=== PATIENT | female | born 1965 | race Caucasian/White ===

== ENCOUNTER 2017-01-30 12:22 | Inpatient (IN) | payer BC ==
[~2017-01-30] VITALS: Ht 162.6 cm; Wt 91.5 kg
[2017-01-30 12:29] VITALS: Ht 162.6 cm; Wt 91.5 kg
[2017-01-30] MEDS ORDERED: ONDANSETRON 4 MG INJ IV STA (13:06)
[2017-01-30] MEDS ORDERED: morphine 4 MG/ML VIAL IV STA (13:06)
[2017-01-30] MEDS ORDERED: SOD CHLORIDE 0.9% 1,000 ML IV STA (13:06)
[2017-01-30] MEDS ORDERED: LOSA25TA5 PO (13:37)
[2017-01-30 13:45] LABS: ADD SCAN DIFF NO
[2017-01-30 13:53] LABS: BASOPHILS % 0.3 % (0.0-2.0); EOSINOPHILS # 0.2 10^3/ul (0.0-0.5); EOSINOPHILS % 1.8 % (0.0-7.0); HEMATOCRIT 43.3 % (37.0-47.0); HEMOGLOBIN 14.3 g/dl (12.0-16.0); LYMPHOCYTES # 3.5 10^3/ul (0.8-2.9); LYMPHOCYTES % 26.1 % (15.0-51.0); MEAN CORPUSCULAR HEMOGLOBIN 28.3 pg (29.0-33.0); MEAN CORPUSCULAR VOLUME 85.6 fl (82.0-101.0); MEAN PLATELET VOLUME 10.9 fl (7.4-10.4); MONOCYTE # 0.9 10^3/ul (0.3-0.9); MONOCYTES % 6.8 % (0.0-11.0); NEUTROPHIL # 8.7 10^3/ul (1.6-7.5); NEUTROPHILS % 64.6 % (39.0-77.0); PLATELET COUNT 329 10^3/UL (140-415); RED BLOOD COUNT 5.06 10^6/ul (4.20-5.40); RED CELL DISTRIBUTION WIDTH 13.4 % (11.5-14.5); WHITE BLOOD COUNT 13.5 10^3/ul (4.8-10.8)
[2017-01-30 14:00] LABS: ADD UMIC YES; URINE BILIRUBIN (Dip) NEGATIVE (NEGATIVE); URINE BLOOD (Dip) 1+ (NEGATIVE); URINE COLOR LT. YELLOW (YELLOW); URINE GLUCOSE (Dip) NEGATIVE (NEGATIVE); URINE KETONES (Dip) NEGATIVE (NEGATIVE); URINE LEUKOCYTE ESTERASE (Dip) NEGATIVE (NEGATIVE); URINE NITRITE (Dip) NEGATIVE (NEGATIVE); URINE TOTAL PROTEIN (Dip) TRACE (NEGATIVE); URINE UROBILINOGEN (Dip) 0.2 E.U./dL (0.1-1.0)
[2017-01-30 14:01] LABS: ALBUMIN 4.6 g/dl (3.3-4.9)
[2017-01-30 14:02] LABS: POTASSIUM 4.1 mmol/L (3.5-5.1)
[2017-01-30 14:03] LABS: CREATININE 0.76 mg/dl (0.44-1.00)
[2017-01-30 14:04] LABS: ALBUMIN/GLOBULIN RATIO 1.35; CALCIUM 9.7 mg/dl (8.4-10.2)
[2017-01-30 14:15] LABS: BACTERIA,URINE RARE
[2017-01-30] MEDS ORDERED: IOHEXOL 100 ML ONE (14:17)
[2017-01-30] MEDS ORDERED: SOD CHLORIDE 0.9% 100 ML ONE (14:17)
[2017-01-30 14:20] LABS: TROPONIN-I 0.683 ng/ml (0.00-0.12)
--- NOTE | 2017-01-30 14:24 | RADRPT ---
PROCEDURE: Abdominal Ultrasound (right upper quadrant). CLINICAL INDICATION: Abdominal pain TECHNIQUE: Multiple real-time longitudinal and transverse images of the right upper quadrant of th e abdomen were acquired utilizing a curved array transducer. Images were reviewed on a high-resoluti on PACS workstation. COMPARISON: None FINDINGS: The liver demonstrates increased echogenicity consistent with fatty infiltration. The liver measure s at the upper limits of normal for size. No focal masses are identified. There is no evidence of intra or extrahepatic ductal dilatation. The common bile duct measures 4.0 mm in diameter. No galls tones or gallbladder wall thickening is seen. The visualized portions of the pancreas are unremarkable with obscuration of the tail of the pancrea s. No free fluid is identified. There is no evidence of right hydronephrosis or renal calcification. The right kidney measures 10.9 cm in length. The visualized portions of the aorta and inferior vena cava are within normal limits. IMPRESSION: 1. Fatty infiltration of the liver. 2. Otherwise unremarkable right upper quadrant ultrasound. RPTAT: KK .Hubert Ibarra MD, Date Time Electronically viewed and signed by .Hubret Ibarra MD, MD on 01/30/2017 14:23 .B/
[2017-01-30] MEDS ORDERED: HYDROmorphONE 1 MG/ML SYG IV STA (14:42)
[2017-01-30] MEDS ORDERED: HEPARIN 1000 UNITS/ML 10 ML INJ IV STA (16:13)
[2017-01-30] MEDS ORDERED: HEPARIN 25000 UNITS/250 ML 250 ML IV STA (16:13)
--- NOTE | 2017-01-30 16:24 | RADRPT ---
PROCEDURE: CT pulmonary angiogram. CLINICAL INDICATION: Chest pain. TECHNIQUE: CT scan of the chest and CT pulmonary angiogram was [facility] High-resolution thin slice coronal and sagittal imaging was obtained from the axial source imag es. The patient was examined following the uncomplicated intravenous administration of 100 cc of Om nipaque 350. The images were reviewed on a PACS workstation. Three dimensional reformatting was used as part of interpretation. The total exam CTDI equals 34 and the total exam DLP equals 716.93 mGy- cm. COMPARISON: Abdominal ultrasound 01/30/2017. FINDINGS: CT Pulmonary Angiogram: The pulmonary arteries are well visualized and opacified to the proximal subsegmental level. No artur ling defects are identified throughout the pulmonary arterial tree to suggest pulmonary embolism. T he pulmonary artery is normal for size. No filling defects are identified within the chambers of th e heart. The aorta is adequately opacified to exclude aneurysm, dissection, or intramural hematoma. No signi ficant atherosclerotic calcifications are identified. CT Chest: There are no enlarged mediastinal, axillary, or hilar lymph nodes seen. Size is at the upper limits of normal. There is no pericardial thickening or pericardial effusion. There are minimal dependent changes in the posterior lower lobes. The lungs are otherwise clear. N o pulmonary infiltrate is identified. No pulmonary mass or suspicious pulmonary nodules seen there is no pleural effusion or pneumothorax. There is diffuse decreased attenuation of the hepatic parenchyma consistent with fatty infiltration. There are 2 low density lesions within the left adrenal gland, both with Hounsfield units less coco n 10, and the larger measuring up to 1.8 cm consistent with adrenal adenomas. The partially visuali zed subdiaphragmatic contents are otherwise within normal limits. There are mild degenerate changes of the thoracic spine. The bones of the thorax are otherwise inta ct. IMPRESSION: 1. No CT evidence of pulmonary embolism. 2. No CT evidence of significant aortic pathology. 3. Fatty infiltration of the liver. 4. Left adrenal adenomas. RPTAT: KK .Hubert Ibarra MD, MD Date Time Electronically viewed and signed by .Hubert Ibarra MD, MD on 01/30/2017 16:24 .Reji/
[2017-01-30] MEDS ORDERED: ONDANSETRON 4 MG INJ IV PRN (16:30)
[2017-01-30] MEDS ORDERED: ACETAMINOPHEN 325 MG TAB PO PRN ×2 (16:30→18:00)
--- NOTE | 2017-01-30 17:01 | ERA ---
ER Documentation Chief Complaint Date/Time DATE: 01/30/17 TIME: 16:56 Chief Complaint epigastric pain x 3 days; nausea HPI Patient is a 51-year-old female with obesity, hypertension, and stroke presents with chest pain. The patient has squeezing and substernal chest pain. She also has sweating. She has had these symptoms for 3 days and it has been constant. She has had no treatment as of yet. Upon review of old medical records this is the patient's first visit to the emergency department. ROS All systems reviewed and are negative except as per history of present illness. Medications Home Meds Reported Medications Losartan Potassium* (Losartan Potassium*) 25 Mg Tablet, 25 MG PO DAILY, TAB 01/30/17 Allergies Allergies: Coded Allergies: No Known Allergy (Unverified , 01/30/17) PMhx/Soc History of Surgery: Yes (right side of face tumor ', appy ') Anesthesia Reaction: No Hx Neurological Disorder: Yes (headaches) Hx Respiratory Disorders: No Hx Cardiac Disorders: Yes (htn) Hx Psychiatric Problems: No Hx Miscellaneous Medical Probl: No Hx Alcohol Use: No Hx Substance Use: No Hx Tobacco Use: No Smoking Status: Former smoker FmHx Family History: No coronary disease Physical Exam Vitals Vital Signs Date Time Temp Pulse Resp B/P Pulse Ox O2 Delivery O2 Flow Rate FiO2 01/30/17 15:43 77 14 141/92 95 Room Air 01/30/17 14:51 85 11 147/89 100 Room Air 01/30/17 12:29 99.0 120 20 135/99 98 Physical Exam Const: Moderate distress secondary to pain Head: Atraumatic Eyes: Normal Conjunctiva ENT: Normal External Ears, Nose and Mouth. Neck: Full range of motion..~ No meningismus. Resp: Clear to auscultation bilaterally Cardio: Tachycardic rate without murmur Abd: Soft, non tender, non distended. Normal bowel sounds Skin: No petechiae or rashes Back: No midline or flank tenderness Ext: No cyanosis, or edema Neur: Awake and alert Psych: Normal Mood and Affect Result Diagram: 01/30/17 1333 01/30/17 1333 Results 24 hrs Laboratory Tests Test 01/30/17 13:33 01/30/17 13:49 Alanine Aminotransferase (ALT/SGPT) 43IU/L Albumin 4.6g/dl Albumin/Globulin Ratio 1.35 Alkaline Phosphatase 109IU/L Anion Gap 20 Aspartate Amino Transf (AST/SGOT) 28IU/L Basophils # 0.010^3/ul Basophils % 0.3% Blood Urea Nitrogen 12mg/dl Calcium Level 9.7mg/dl Carbon Dioxide Level 25mmol/L Chloride Level 104mmol/L Creatinine 0.76mg/dl Direct Bilirubin 0.00mg/dl Eosinophils # 0.210^3/ul Eosinophils % 1.8% Globulin 3.40g/dl Glucose Level 99mg/dl Hematocrit 43.3% Hemoglobin 14.3g/dl Indirect Bilirubin 0.0mg/dl Lipase 86U/L Lymphocytes # 3.510^3/ul Lymphocytes % 26.1% Mean Corpuscular Hemoglobin 28.3pg Mean Corpuscular Hemoglobin Concent 33.0g/dl Mean Corpuscular Volume 85.6fl Mean Platelet Volume 10.9fl Monocytes # 0.910^3/ul Monocytes % 6.8% Neutrophils # 8.710^3/ul Neutrophils % 64.6% Nucleated Red Blood Cells # 0.010^3/ul Nucleated Red Blood Cells % 0.0/100WBC Platelet Count 40923^3/UL Potassium Level 4.1mmol/L Red Blood Count 5.0610^6/ul Red Cell Distribution Width 13.4% Sodium Level 145mmol/L Total Bilirubin 0.0mg/dl Total Protein 8.0g/dl Troponin I 0.683ng/ml White Blood Count 13.510^3/ul Urine Bacteria RARE Urine Bilirubin NEGATIVE Urine Clarity CLEAR Urine Color LT. YELLOW Urine Epithelial Cells RARE Urine Glucose NEGATIVE% Urine Hemoglobin 1+ Urine Ketones NEGATIVE Urine Leukocyte Esterase NEGATIVE Urine Microscopic RBC 2-5/HPF Urine Microscopic WBC 0-2/HPF Urine Nitrite NEGATIVE Urine Specific [place] 1.010 Urine Total Protein TRACE Urine Urobilinogen 0.2 E.U./dL Urine pH 7.0 Current Medications Medications (Trade) Dose Ordered Sig/Zoey Route PRN Reason Start Time Stop Time Status Last Admin Dose Admin Sodium Chloride (NS) 1,000 ml @ 1,000 mls/hr Q1H STAT IV 01/30/17 13:06 01/30/17 14:05 DC 01/30/17 13:31 Morphine Sulfate (morphine) 4 mg ONCE STAT IV 01/30/17 13:06 01/30/17 13:07 DC 01/30/17 13:31 Ondansetron HCl (Zofran Inj) 4 mg ONCE STAT IV 01/30/17 13:06 01/30/17 13:07 DC 01/30/17 13:31 IV Flush 10 ml 10 ml STK-MED ONCE .ROUTE 01/30/17 14:17 01/30/17 14:18 DC 01/30/17 14:38 Sodium Chloride 100 ml @ ud STK-MED ONCE .ROUTE 01/30/17 14:17 01/30/17 14:18 DC 01/30/17 14:38 Iohexol (Omnipaque) 100 ml @ ud STK-MED ONCE .ROUTE 01/30/17 14:17 01/30/17 14:18 DC 01/30/17 14:38 Hydromorphone HCl (Dilaudid) 1 mg ONCE STAT IV 01/30/17 14:42 01/30/17 14:43 DC 01/30/17 14:48 Ondansetron HCl (Zofran Inj) 4 mg ER BRIDGE PRN IV NAUSEA AND/OR VOMITING 01/30/17 16:30 01/31/17 16:29 Acetaminophen (Tylenol Tab) 650 mg ER BRIDGE PRN PO MILD PAIN/FEVER 01/30/17 16:30 01/31/17 16:29 Heparin Sodium (Porcine) 5500 unit 5,500 unit ONCE STAT IV 01/30/17 16:13 01/30/17 16:15 DC Heparin Sodium (Porcine) (Heparin 40862 Units/250 ml) 250 ml @ 0 mls/hr ONCE STAT IV 01/30/17 16:13 01/30/17 16:15 DC Procedures/MDM EKG #1 read by me: Rate/Rhythm: Sinus tachycardia at a rate of 110 Intervals: Normal Impression: Sinus tachycardia without evidence of ischemia EKG #2 read by me: Rate/Rhythm: Regular rate and rhythm at a rate of 85 Intervals: Normal Impression: Diffuse minimal ST depressions with minimal ST elevation in aVR consistent with ischemia CT chest shows no dissection or pulmonary embolism per radiology. Patient is a 51-year-old female who presents with chest pain. Her EKGs were concerning for ischemia but at this point I doubt STEMI. The patient's troponin came back positive at 0.683. She was given aspirin and nitroglycerin empirically. I spoke with Dr. Bhagat from the panel team for admission as the patient is unstable for transfer. The patient will be admitted to a telemetry bed. I spoke with Dr. March from cardiology who has recommended IV heparin bolus and heparin drip. CT scan was done and was negative for pulmonary embolism or aortic dissection. I am concerned for ischemic disease at this time. The patient will be admitted to a telemetry bed. She will likely need urgent cardiac catheterization. Critical Care Time: 40 minutes Treatments/Evaluations: Close monitoring and treatment of unstable vital signs, cardiorespiratory, and neurologic status, while maintaining tight balance of fluid, respiratory, and cardiac interventions. This time includes discussing the case with the patient and the patient's family. This time does not include all procedures stated elsewhere in this record. This time also includes reviewing old records, labs and radiological studies. This time includes examining and re-examining the patient. Additionally, this time also includes arranging care with admitting and consulting physicians. Departure Diagnosis: Primary Impression: NSTEMI (non-ST elevated myocardial infarction) Additional Impression: Chest pain Qualified Code: I20.9 - Ischemic chest pain Condition: Serious PRACHI SPIVEY MD Jan 30, 2017 17:01
[2017-01-30] MEDS ORDERED: ATORVASTATIN 80 MG TAB PO ONE (17:30)
[2017-01-30] MEDS ORDERED: ASPIRIN 81 MG TAB PO ONE (17:30)
--- NOTE | 2017-01-30 17:35 | CONS ---
Date/Time of Note Date/Time of Note DATE: 01/30/17 TIME: 17:27 Assessment/Plan Assessment/Plan Chief Complaint/Hosp Course NSTEMI: Trop 0.6 and EKG with mild ST changes concerning for global ischemia ( LM or 3V disease usually). In a woman her age the differential is broad and includes most likely atherosclerotic CAD but also vasospasm, coronary dissection , pericarditis. CTA is negative for PE and aortic dissection. She will need a cardiac cath for evaluation of her coronaries. She is agreeable. HTN Prior tobacco use Obesity -ASA 325mg now and 81mg daily starting tomorrow -heparin drip -lipitor -metoprolol 25mg BID -echo -cath tomorrow afternoon -NPO after midnight Problems: Consultation Date/Type/Reason Admit Date/Time Date of Consultation: Jan 30, 2017 Type of Consultation: Cardiology Reason for Consultation Chest carrie/NSTEMI Referring Provider: PRACHI SPIVEY MD Hx of Present Illness 51 yo F with a h/o HTN, tobacco use (20 yrs, 4 cigs daily, quit 5 months ago), obesity, who presented with chest pain. The pt notes that she has started to have chest pain 2 days ago which she describes as pressure like substernal and radiating to her left arm. The pain has been constant but gets worse is she tries to exert herself. She is not sure if it is worse with inspiration. She did have a cold 2 weeks ago. She denies SOB, orthopnea, edema. She has never had chest pain or cardiac issues. No family h/o CAD. She denies bleeding issues. She is currently chest pain free. per HPI Past Medical History HTN, tobacco use Social History Smoking Status: Former smoker Exam/Review of Systems Vital Signs Vitals Vital Signs Date Time Temp Pulse Resp B/P Pulse Ox O2 Delivery O2 Flow Rate FiO2 01/30/17 15:43 77 14 141/92 95 Room Air 01/30/17 12:29 99.0 Exam Constitutional: alert, oriented Psych: no complaints Head: atraumatic, normocephalic Neck: No jvd Respiratory: clear to auscultation, No crackles/rales Cardiovascular: regular rate and rhythm, No edema, No systolic murmur Gastrointestinal: non-tender, other (obese), soft Musculoskeletal: nl extremities to inspection Neurological: nl mental status, nl speech Skin: No rash or lesions Results EKG: sinus, mild diffuse ST depression with 1 mm ERICK in aVR concerning for global ischemia Result Diagram: 01/30/17 1333 01/30/17 1333 Results 24 hrs Laboratory Tests Test 01/30/17 13:33 01/30/17 13:49 Alanine Aminotransferase (ALT/SGPT) 43 Albumin 4.6 Albumin/Globulin Ratio 1.35 Alkaline Phosphatase 109 Anion Gap 20 H Aspartate Amino Transf (AST/SGOT) 28 Basophils # 0.0 Basophils % 0.3 Blood Urea Nitrogen 12 Calcium Level 9.7 Carbon Dioxide Level 25 Chloride Level 104 Creatinine 0.76 Direct Bilirubin 0.00 Eosinophils # 0.2 Eosinophils % 1.8 Globulin 3.40 H Glucose Level 99 Hematocrit 43.3 Hemoglobin 14.3 Indirect Bilirubin 0.0 Lipase 86 Lymphocytes # 3.5 H Lymphocytes % 26.1 Mean Corpuscular Hemoglobin 28.3 L Mean Corpuscular Hemoglobin Concent 33.0 Mean Corpuscular Volume 85.6 Mean Platelet Volume 10.9 H Monocytes # 0.9 Monocytes % 6.8 Neutrophils # 8.7 H Neutrophils % 64.6 Nucleated Red Blood Cells # 0.0 Nucleated Red Blood Cells % 0.0 Platelet Count 329 Potassium Level 4.1 Red Blood Count 5.06 Red Cell Distribution Width 13.4 Sodium Level 145 H Total Bilirubin 0.0 L Total Protein 8.0 Troponin I 0.683 *H White Blood Count 13.5 H Urine Bacteria RARE Urine Bilirubin NEGATIVE Urine Clarity CLEAR Urine Color LT. YELLOW Urine Epithelial Cells RARE Urine Glucose NEGATIVE Urine Hemoglobin 1+ H Urine Ketones NEGATIVE Urine Leukocyte Esterase NEGATIVE Urine Microscopic RBC 2-5 Urine Microscopic WBC 0-2 Urine Nitrite NEGATIVE Urine Specific [place] 1.010 Urine Total Protein TRACE Urine Urobilinogen 0.2 E.U./dL Urine pH 7.0 PATRICIA NEVILLE Jan 30, 2017 17:34
[2017-01-30 17:44] VITALS: BP 138/75; RESP 18
[2017-01-30 17:49] VITALS: PULSE 91
[2017-01-30] MEDS ORDERED: DOCUSATE SODIUM 100 MG CAP PO PRN (18:00)
[2017-01-30] MEDS ORDERED: HEPARIN 1000 UNITS/ML 10 ML INJ IV ONE (18:00)
[2017-01-30] MEDS ORDERED: LORAZEPAM 0.5 MG TAB PO PRN (18:00)
[2017-01-30] MEDS ORDERED: ONDANSETRON 4 MG TAB PO PRN (18:00)
[2017-01-30] MEDS ORDERED: morphine 2 MG INJ IV PRN (18:00)
[2017-01-30] MEDS ORDERED: NITROGLYCERIN (SL) 0.4 MG TAB SL PRN (18:00)
[2017-01-30] MEDS ORDERED: HEPARIN 1000 UNITS/ML 10 ML INJ IV PRN (18:00)
[2017-01-30] MEDS ORDERED: NACL 0.9% 3 ML SYG IV SCH (18:00)
[2017-01-30] MEDS: METOPROLOL 25 MG TAB PO SCH ×2 (18:17→23:00)
[2017-01-30 18:34] LABS: ADD SCAN DIFF NO
[2017-01-30 18:36] LABS: BASOPHIL # 0.1 10^3/ul (0.0-0.1); BASOPHILS % 0.4 % (0.0-2.0); EOSINOPHILS # 0.2 10^3/ul (0.0-0.5); EOSINOPHILS % 1.6 % (0.0-7.0); HEMOGLOBIN 13.7 g/dl (12.0-16.0); LYMPHOCYTES # 3.4 10^3/ul (0.8-2.9); MEAN CORPUSCULAR HEMOGLOBIN 28.4 pg (29.0-33.0); MEAN CORPUSCULAR HGB CONC 32.6 g/dl (32.0-37.0); MEAN PLATELET VOLUME 11.2 fl (7.4-10.4); MONOCYTE # 0.6 10^3/ul (0.3-0.9); MONOCYTES % 4.9 % (0.0-11.0); NEUTROPHILS % 62.8 % (39.0-77.0); NUCLEATED RED BLOOD CELLS% 0.2 /100WBC (0.0-0.0); PLATELET COUNT 279 10^3/UL (140-415); RED BLOOD COUNT 4.83 10^6/ul (4.20-5.40); RED CELL DISTRIBUTION WIDTH 13.2 % (11.5-14.5); WHITE BLOOD COUNT 11.2 10^3/ul (4.8-10.8)
[2017-01-30 18:46] LABS: INR 1.01; PROTIME 13.3 Sec (12.2-14.2)
[2017-01-30 18:54] LABS: PARTIAL THROMBOPLASTIN TIME 99.6 Sec (25.0-35.0)
--- NOTE | 2017-01-30 19:02 | HP ---
DATE OF ADMISSION: 01/30/2017 CASUALTY INSURANCE CLAIM ADJUSTER: Cardiology. CHIEF COMPLAINT: Chest pain. HISTORY OF PRESENT ILLNESS: This is a pleasant 51-year-old female with past medical history of hype rtension and obesity, who presents to [facility] [place] secondary to having chest discom fort which has been ongoing for the past 3 days. The chest is substernal, radiating to her left daniele ulder and not her jaw. The patient also has been complaining of having mild headache without any di zziness, although patient does complain of having some nausea this morning without any vomiting. Th e chest is not accompanied with any shortness of breath. There is no recent travel history. No sic k contact or any other discomfort. Patient denies any fever, chills, weight gain, weight loss, anor exia. Positive for chest pain, shortness of breath. No abdominal pain. No dysuria, hematuria, urg ency, incontinence. No change in the color of stool. No recent travel history. No sick contact or any discomfort. PAST MEDICAL HISTORY: 1. Hypertension. 2. Obesity. PAST SURGICAL HISTORY: 1. Appendectomy. 2. Parotid gland surgery on the right. MEDICATIONS: Losartan. SOCIAL HISTORY: She smokes 1 cigarette per day, although her smokes about half a pack of ci garettes per day. No alcohol, no illicit drugs. She lives at home with her and her kids. REVIEW OF SYSTEMS: As above per HPI, otherwise 12 review of systems was found to be negative. PHYSICAL EXAMINATION: VITAL SIGNS: Temperature 98.4, pulse 77, respiration 18, blood pressure 138/75, oxygen 97% room air . GENERAL APPEARANCE: The patient is lying in bed comfortably without any distress. She is awake, al ert, oriented. She is able to answer my questions properly. EYES AND ENT: Conjunctivae and lids are normal. Pupils are normal. Extraocular normal. Hearing g rossly normal. Lips are normal. Oral mucosa is moist. There is evidence of scar in her left side of the face from her surgical intervention. NECK: Supple. Trachea is midline. No lymphadenopathy. RESPIRATORY: Effort is normal. Clear to auscultate bilaterally. CARDIOVASCULAR: Normal S1, S2. Regular rhythm and rate. No murmur, no bruits, no edema. Peripher al pulses, radial pulses palpable. Cap refill is normal. CHEST: Normal expansion of thorax during inspiration. GASTROINTESTINAL: Abdomen is soft, nontender, not distended. Bowel sounds present. No guarding, n o rebound. GENITOURINARY: Deferred. MUSCULOSKELETAL: Upper and lower extremities within normal limits. Full range of motion, strength 5/5 in both upper and lower extremities. NEUROLOGIC: Cranial nerves II through XII are grossly intact. PSYCHIATRIC: Normal judgment and insight. Alert and oriented x3. Mood and affect is normal. LABORATORY WORK AND IMAGING: Sodium 145, potassium 4.1, chloride 104, bicarbonate 25, BUN 12, crea tinine 0.76, glucose 99, calcium 9.7. Troponin ____. WBC 13.5, hemoglobin 14.3, hematocrit 43.3, platelets 329. Urinalysis negative except urine hemoglobin positive 1, trace protein. EKG showed r egular rhythm and rate with ventricular rate of 85, normal intervals with diffuse minimal ST depress ion with minimal ST elevation in AVR , consistent with ischemia. ASSESSMENT AND PLAN: 1. Non-ST myocardial infarction with troponin of 0.68. Cardiology has been consulted. Patient has been placed on heparin drip, aspirin. Follow up cardiology recommendation of possible left heart c atheterization. Will follow up lipid panel. 2. Essential hypertension, well controlled on medical management. 3. Obesity. Diet and exercise has been recommended. 3. Nicotine dependency. Education was provided. Smoking cessation has been advised. 4. Deep venous thrombosis prophylaxis, on heparin. 5. Gastrointestinal prophylaxis, on proton pump inhibitor. 6. We will continue to monitor patient closely. Further recommendations, management and treatment as per clinical course. Total amount of time was spent for evaluation of patient, admission workup 40 minutes. Dictated By: VIET MAHONEY/NTS Conf#: [id number] DID#: [id number]
[2017-01-30 20:14] LABS: TROPONIN-I 1.71 ng/ml (0.00-0.12)
[2017-01-30 20:18] VITALS: BP 107/59; RESP 20
[2017-01-30 20:34] VITALS: PULSE 62
[2017-01-30 23:39] LABS: CK-MB 20.1 ng/ml (0.0-2.4)
[2017-01-30 23:45] LABS: TROPONIN-I 2.65 ng/ml (0.00-0.12)
[2017-01-30] MEDS: HEPARIN 25000 UNITS/250 ML 250 ML IV SCH (23:52)
[2017-01-31] VITALS (37 sets, daily range): BP systolic 110–163; BP diastolic 53–90; PULSE 58–83; RESP 15–41
[2017-01-31] MEDS: PANTOPRAZOLE (EC) 40 MG TAB PO SCH (05:06)
[2017-01-31 06:15] LABS: ADD SCAN DIFF NO
[2017-01-31 06:24] LABS: ABNORMAL IP MESSAGE 1; BASOPHIL # 0.1 10^3/ul (0.0-0.1); BASOPHILS % 0.4 % (0.0-2.0); EOSINOPHILS # 0.4 10^3/ul (0.0-0.5); HEMATOCRIT 40.5 % (37.0-47.0); HEMOGLOBIN 12.9 g/dl (12.0-16.0); LYMPHOCYTES # 5.1 10^3/ul (0.8-2.9); LYMPHOCYTES % 39.3 % (15.0-51.0); MEAN CORPUSCULAR HEMOGLOBIN 28.2 pg (29.0-33.0); MEAN CORPUSCULAR HGB CONC 31.9 g/dl (32.0-37.0); MEAN CORPUSCULAR VOLUME 88.4 fl (82.0-101.0); MEAN PLATELET VOLUME 11.1 fl (7.4-10.4); MONOCYTE # 0.9 10^3/ul (0.3-0.9); MONOCYTES % 6.8 % (0.0-11.0); NEUTROPHIL # 6.5 10^3/ul (1.6-7.5); NEUTROPHILS % 50.2 % (39.0-77.0); PLATELET COUNT 254 10^3/UL (140-415); RED BLOOD COUNT 4.58 10^6/ul (4.20-5.40); RED CELL DISTRIBUTION WIDTH 13.7 % (11.5-14.5); WHITE BLOOD COUNT 12.9 10^3/ul (4.8-10.8)
[2017-01-31 06:40] LABS: CREATININE 0.66 mg/dl (0.44-1.00)
[2017-01-31 06:41] LABS: CALCIUM 8.9 mg/dl (8.4-10.2); CHOL/HDL RATIO 3.4 RATIO; MAGNESIUM 2.1 mg/dl (1.7-2.5)
[2017-01-31 07:09] LABS: CK-MB 16.6 ng/ml (0.0-2.4)
[2017-01-31 07:11] LABS: THYROID STIMULATING HORMONE 0.905 MIU/L (0.465-4.680)
[2017-01-31 07:14] LABS: TROPONIN-I 2.5 ng/ml (0.00-0.12)
[2017-01-31] MEDS: ASPIRIN 81 MG TAB PO SCH (08:20)
[2017-01-31] MEDS: LOSARTAN 25 MG TAB PO SCH (08:20)
[2017-01-31] MEDS: METOPROLOL 25 MG TAB PO SCH ×2 (08:20→20:45)
[2017-01-31] MEDS: HEPARIN 25000 UNITS/250 ML 250 ML IV SCH (08:32)
--- NOTE | 2017-01-31 09:13 | CONS ---
Date/Time of Note Date/Time of Note DATE: 01/31/17 TIME: 09:10 Assessment/Plan Assessment/Plan Chief Complaint/Hosp Course NSTEMI: Trop peaked at 2.6 and EKG with mild ST changes concerning for global ischemia (LM or 3V disease usually). In a woman her age the differential is broad and includes most likely atherosclerotic CAD but also vasospasm, coronary dissection, pericarditis. CTA is negative for PE and aortic dissection. She will need a cardiac cath for evaluation of her coronaries. She is agreeable. HTN Prior tobacco use Obesity -ASA, lipitor -heparin drip -metoprolol 25mg BID -echo -cath today in the afternoon unless stat EKG requires otherwise -NPO Problems: Consultation Date/Type/Reason Admit Date/Time Jan 30, 2017 at 16:08 Initial Consult Date 01/30/17 Type of Consultation: Cardiology Referring Provider: PRACHI SPIVEY MD 24 HR Interval Summary Free Text/Dictation No o/n events. Trop peaked at 2.6. No chest pain last night. This am 2/10 in her arm but not chest. Exam/Review of Systems Vital Signs Vitals Vital Signs Date Time Temp Pulse Resp B/P Pulse Ox O2 Delivery O2 Flow Rate FiO2 01/31/17 08:09 67 01/31/17 07:13 97.8 19 123/65 95 01/30/17 15:43 Room Air Intake and Output 01/30/17 01/30/17 01/31/17 14:59 22:59 06:59 Intake Total 120 ml Balance 120 ml Exam Constitutional: alert, oriented Psych: nl mood/affect Head: atraumatic, normocephalic Neck: No jvd Respiratory: clear to auscultation, No crackles/rales Cardiovascular: regular rate and rhythm, No edema Gastrointestinal: non-tender, soft Neurological: nl speech Results Result Diagram: 01/31/17 0532 01/31/17 0532 Results 24 hrs Laboratory Tests Test 01/30/17 13:33 01/30/17 13:49 01/30/17 18:20 01/30/17 23:09 Alanine Aminotransferase (ALT/SGPT) 43 Albumin 4.6 Albumin/Globulin Ratio 1.35 Alkaline Phosphatase 109 Anion Gap 20 H Aspartate Amino Transf (AST/SGOT) 28 Basophils # 0.0 0.1 Basophils % 0.3 0.4 Blood Urea Nitrogen 12 Calcium Level 9.7 Carbon Dioxide Level 25 Chloride Level 104 Creatinine 0.76 Direct Bilirubin 0.00 Eosinophils # 0.2 0.2 Eosinophils % 1.8 1.6 Globulin 3.40 H Glucose Level 99 Hematocrit 43.3 42.0 Hemoglobin 14.3 13.7 Indirect Bilirubin 0.0 Lipase 86 Lymphocytes # 3.5 H 3.4 H Lymphocytes % 26.1 30.0 Mean Corpuscular Hemoglobin 28.3 L 28.4 L Mean Corpuscular Hemoglobin Concent 33.0 32.6 Mean Corpuscular Volume 85.6 87.0 Mean Platelet Volume 10.9 H 11.2 H Monocytes # 0.9 0.6 Monocytes % 6.8 4.9 Neutrophils # 8.7 H 7.0 Neutrophils % 64.6 62.8 Nucleated Red Blood Cells # 0.0 0.0 Nucleated Red Blood Cells % 0.0 0.2 H Platelet Count 329 279 Potassium Level 4.1 Red Blood Count 5.06 4.83 Red Cell Distribution Width 13.4 13.2 Sodium Level 145 H Total Bilirubin 0.0 L Total Protein 8.0 Troponin I 0.683 *H 1.710 *H 2.650 *H White Blood Count 13.5 H 11.2 H Urine Bacteria RARE Urine Bilirubin NEGATIVE Urine Clarity CLEAR Urine Color LT. YELLOW Urine Epithelial Cells RARE Urine Glucose NEGATIVE Urine Hemoglobin 1+ H Urine Ketones NEGATIVE Urine Leukocyte Esterase NEGATIVE Urine Microscopic RBC 2-5 Urine Microscopic WBC 0-2 Urine Nitrite NEGATIVE Urine Specific [place] 1.010 Urine Total Protein TRACE Urine Urobilinogen 0.2 E.U./dL Urine pH 7.0 Activated Partial Thromboplast Time 99.6 *H 59.2 H Creatine Kinase 189 206 H Creatine Kinase Index 10.1 9.8 Creatinine Kinase MB (Mass) 19.00 H 20.10 H INR International Normalized Ratio 1.01 Prothrombin Time 13.3 Prothrombin Time Ratio 1.0 Test 01/31/17 05:32 Activated Partial Thromboplast Time 41.6 H Anion Gap 16 Basophils # 0.1 Basophils % 0.4 Blood Urea Nitrogen 11 Calcium Level 8.9 Carbon Dioxide Level 26 Chloride Level 106 Cholesterol Level 171 Cholesterol/HDL Ratio 3.4 Creatine Kinase 196 Creatine Kinase Index 8.5 Creatinine 0.66 Creatinine Kinase MB (Mass) 16.60 H Eosinophils # 0.4 Eosinophils % 3.0 Glucose Level 100 HDL Cholesterol 50 Hematocrit 40.5 Hemoglobin 12.9 LDL Cholesterol, Calculated 86 Lymphocytes # 5.1 H Lymphocytes % 39.3 Magnesium Level 2.1 Mean Corpuscular Hemoglobin 28.2 L Mean Corpuscular Hemoglobin Concent 31.9 L Mean Corpuscular Volume 88.4 Mean Platelet Volume 11.1 H Monocytes # 0.9 Monocytes % 6.8 Neutrophils # 6.5 Neutrophils % 50.2 Nucleated Red Blood Cells # 0.0 Nucleated Red Blood Cells % 0.0 Platelet Count 254 Potassium Level 4.0 Red Blood Count 4.58 Red Cell Distribution Width 13.7 Sodium Level 144 Thyroid Stimulating Hormone (TSH) 0.905 Triglycerides Level 175 H Troponin I 2.500 *H White Blood Count 12.9 H Medications Medications Current Medications Metoprolol Tartrate (Lopressor) 25 mg BID PO Last administered on 01/31/17 08: 20; Admin Dose 25 MG; Start 01/30/17 at 17:30 Losartan Potassium (Cozaar) 25 mg DAILY PO Last administered on 01/31/17 08:20 ; Admin Dose 25 MG; Start 01/31/17 at 09:00 Lorazepam (Ativan) 0.5 mg Q8H PRN PO ANXIETY; Start 01/30/17 at 18:00 Ondansetron HCl (Zofran Tab) 4 mg Q6H PRN PO NAUSEA AND/OR VOMITING; Start 01/30 at 18:00 Aspirin (Aspirin) 81 mg DAILY PO Last administered on 01/31/17 08:20; Admin Dose 81 MG; Start 01/31/17 at 09:00 Nitroglycerin (Nitroglycerin (Sl Tab) 0.4 Mg) 1 tab Q5M PRN SL CHEST PAIN; Start 01/30/17 at 18:00 Acetaminophen (Tylenol Tab) 650 mg Q6H PRN PO PAIN LEVEL 1-3 OR FEVER; Start at 18:00 Morphine Sulfate (morphine) 1 mg Q4H PRN IV PAIN LEVEL 7-10; Start 01/30/17 at 18:00 Docusate Sodium (Colace) 100 mg Q12H PRN PO CONSTIPATION; Start 01/30/17 at 18: 00 Pantoprazole (Protonix Tab) 40 mg DAILY@06 PO ; Start 01/31/17 at 06:00 Atorvastatin Calcium (Lipitor) 80 mg HS PO ; Start 01/31/17 at 21:00 PATRICIA NEVILLE Jan 31, 2017 09:12
--- NOTE | 2017-01-31 11:35 | RADRPT ---
Echocardiogram Report Patient Name: ARMEN CHILDRESS Gender: Female Date: 1965 Study Date: 31-Jan-2017 Furnace Process Supervisor: Edy Emmanuel [facility] Location: [address] Ref. Physician: VIET RIOS Quality: Good Procedures: Transthoracic echocardiogram with complete 2D, M-Mode, and doppler examination. Indications: NSTEMI. 2D/M Mode Doppler Measurement Value Normal Ranges Measurement Value Normal Ranges LVIDd 2D 5.0 3.5 - 5.6 cm AV Peak Hector 1.1 m/sec LVIDs 2D 3.2 2.1 - 4.1 cm AV Peak PG 4.4 mmHg LVPWd 2D 0.9 0.6 - 1.1 cm LVOT Peak Hector 0.8 m/sec IVSd 2D 0.7 0.6 - 1.1 cm LVOT Peak PG 2.5 mmHg AoR Diam 2D 2.8 2.0 - 3.7 cm MV E Peak Hector 0.7 m/sec EDV 2D 119.0 cm3 MV A Peak Ehctor 0.9 m/sec ESV 2D 32.7 cm3 MV E/A 0.8 LA Dimen 2D 3.2 2.3 - 4.0 cm MV Decel Time 255 msec MV Decel [place] 3 MV E/A 0.8 Findings Left Ventricle: Normal left ventricular systolic function. Normal left ventricular cavity size. Normal left ventricular wall thickness. Ejection fraction is visually estimated at 60 %. Tissue Doppler/Mitral Doppler indices are within normal limits. Right Ventricle: Normal right ventricular size. Normal right ventricular systolic function. Left Atrium: The left atrium is normal in size. Right Atrium: The right atrium is normal in size. Mitral Valve: Mitral valve leaflets appear mildly thickened. Mild mitral valve regurgitation. Aortic Valve: Normal appearance of the aortic valve. No significant aortic stenosis or insufficiency. Tricuspid Valve: Normal appearance and function of the tricuspid valve with trace physiologic regurgitation. Pulmonic Valve: Normal pulmonic valve appearance. Pericardium: Normal pericardium with no significant pericardial effusion. Aorta: Normal aortic root. IVC: Normal size and normal respiratory collapse consistent with normal right atrial pressure. Conclusions 1.Normal left ventricular systolic function. Normal left ventricular cavity size. Normal left ventricular wall thickness. Ejection fraction is visually estimated at 60 %. Tissue Doppler/Mitral Doppler indices are within normal limits. 2.No significant valvular stenosis or regurgitation seen. 3.Unable to estimate RVSP. RA pressure is 3 mmHg. Electronically Signed By: Marlon March 31-Jan-2017 11:33:42 -0800 Patient Name: ARMEN CHILDRESS Study Date: 31-Jan-[id number]
--- NOTE | 2017-01-31 13:20 | PN ---
Date/Time of Note Date/Time of Note DATE: 01/31/17 TIME: 13:15 Assessment/Plan VTE Prophylaxis VTE Prophylaxis Intervention: heparin Lines/Catheters IV [facility] Peripheral IV Urinary Cath still in place: No Assessment/Plan Chief Complaint/Hosp Course ASSESSMENT AND PLAN: 1. Non-ST myocardial infarction with troponin trending up, cardiology has been consulted. Patient has been placed on heparin drip, aspirin. Follow up cardiology recommendation of possible left heart catheterization. 2. Essential hypertension, well controlled on medical management. 3. Obesity. Diet and exercise has been recommended. 3. Nicotine dependency. Education was provided. Smoking cessation has been advised. 4. Deep venous thrombosis prophylaxis, on heparin. 5. Gastrointestinal prophylaxis, on proton pump inhibitor. We will continue to monitor patient closely. Further recommendations, management and treatment as per clinical course. Problems: Subjective 24 Hr Interval Summary Free Text/Dictation Patient denies of having any shortness of breath Continues to complain of having left-sided chest discomfort N.p.o. secondary to upcoming procedure Exam/Review of Systems Vital Signs Vitals Vital Signs Date Time Temp Pulse Resp B/P Pulse Ox O2 Delivery O2 Flow Rate FiO2 01/31/17 12:32 68 01/31/17 11:07 98.0 19 110/61 97 01/30/17 15:43 Room Air Intake and Output 01/30/17 01/30/17 01/31/17 15:00 23:00 07:00 Intake Total 120 ml Balance 120 ml Exam General: The patient is moderately obese, Not in acute distress. HEENT: Atraumatic, normocephalic. The pupils are equal and round . Neck: Supple with full range of motion. Chest: Normal expansion of the thorax during inspiration Lungs: Clear to auscultation bilaterally Heart: Normal S1-S2, Regular rhythm and rate. Abdomen: Soft , nontender, nondistended , bowel sounds are present. Extremities: Normal to inspection, no edema no cyanosis Neurologic: Normal mental status,The patient is awake, alert and oriented . Results Result Diagram: 01/31/17 0532 01/31/17 0532 Results 24 hrs Laboratory Tests Test 01/30/17 13:33 01/30/17 13:49 01/30/17 18:20 01/30/17 23:09 Alanine Aminotransferase (ALT/SGPT) 43 Albumin 4.6 Albumin/Globulin Ratio 1.35 Alkaline Phosphatase 109 Anion Gap 20 H Aspartate Amino Transf (AST/SGOT) 28 Basophils # 0.0 0.1 Basophils % 0.3 0.4 Blood Urea Nitrogen 12 Calcium Level 9.7 Carbon Dioxide Level 25 Chloride Level 104 Creatinine 0.76 Direct Bilirubin 0.00 Eosinophils # 0.2 0.2 Eosinophils % 1.8 1.6 Globulin 3.40 H Glucose Level 99 Hematocrit 43.3 42.0 Hemoglobin 14.3 13.7 Indirect Bilirubin 0.0 Lipase 86 Lymphocytes # 3.5 H 3.4 H Lymphocytes % 26.1 30.0 Mean Corpuscular Hemoglobin 28.3 L 28.4 L Mean Corpuscular Hemoglobin Concent 33.0 32.6 Mean Corpuscular Volume 85.6 87.0 Mean Platelet Volume 10.9 H 11.2 H Monocytes # 0.9 0.6 Monocytes % 6.8 4.9 Neutrophils # 8.7 H 7.0 Neutrophils % 64.6 62.8 Nucleated Red Blood Cells # 0.0 0.0 Nucleated Red Blood Cells % 0.0 0.2 H Platelet Count 329 279 Potassium Level 4.1 Red Blood Count 5.06 4.83 Red Cell Distribution Width 13.4 13.2 Sodium Level 145 H Total Bilirubin 0.0 L Total Protein 8.0 Troponin I 0.683 *H 1.710 *H 2.650 *H White Blood Count 13.5 H 11.2 H Urine Bacteria RARE Urine Bilirubin NEGATIVE Urine Clarity CLEAR Urine Color LT. YELLOW Urine Epithelial Cells RARE Urine Glucose NEGATIVE Urine Hemoglobin 1+ H Urine Ketones NEGATIVE Urine Leukocyte Esterase NEGATIVE Urine Microscopic RBC 2-5 Urine Microscopic WBC 0-2 Urine Nitrite NEGATIVE Urine Specific [place] 1.010 Urine Total Protein TRACE Urine Urobilinogen 0.2 E.U./dL Urine pH 7.0 Activated Partial Thromboplast Time 99.6 *H 59.2 H Creatine Kinase 189 206 H Creatine Kinase Index 10.1 9.8 Creatinine Kinase MB (Mass) 19.00 H 20.10 H INR International Normalized Ratio 1.01 Prothrombin Time 13.3 Prothrombin Time Ratio 1.0 Test 01/31/17 05:32 Activated Partial Thromboplast Time 41.6 H Anion Gap 16 Basophils # 0.1 Basophils % 0.4 Blood Urea Nitrogen 11 Calcium Level 8.9 Carbon Dioxide Level 26 Chloride Level 106 Cholesterol Level 171 Cholesterol/HDL Ratio 3.4 Creatine Kinase 196 Creatine Kinase Index 8.5 Creatinine 0.66 Creatinine Kinase MB (Mass) 16.60 H Eosinophils # 0.4 Eosinophils % 3.0 Glucose Level 100 HDL Cholesterol 50 Hematocrit 40.5 Hemoglobin 12.9 LDL Cholesterol, Calculated 86 Lymphocytes # 5.1 H Lymphocytes % 39.3 Magnesium Level 2.1 Mean Corpuscular Hemoglobin 28.2 L Mean Corpuscular Hemoglobin Concent 31.9 L Mean Corpuscular Volume 88.4 Mean Platelet Volume 11.1 H Monocytes # 0.9 Monocytes % 6.8 Neutrophils # 6.5 Neutrophils % 50.2 Nucleated Red Blood Cells # 0.0 Nucleated Red Blood Cells % 0.0 Platelet Count 254 Potassium Level 4.0 Red Blood Count 4.58 Red Cell Distribution Width 13.7 Sodium Level 144 Thyroid Stimulating Hormone (TSH) 0.905 Triglycerides Level 175 H Troponin I 2.500 *H White Blood Count 12.9 H Medications Medications Current Medications Metoprolol Tartrate (Lopressor) 25 mg BID PO Last administered on 01/31/17 08: 20; Admin Dose 25 MG; Start 01/30/17 at 17:30 Losartan Potassium (Cozaar) 25 mg DAILY PO Last administered on 01/31/17 08:20 ; Admin Dose 25 MG; Start 01/31/17 at 09:00 Lorazepam (Ativan) 0.5 mg Q8H PRN PO ANXIETY; Start 01/30/17 at 18:00 Ondansetron HCl (Zofran Tab) 4 mg Q6H PRN PO NAUSEA AND/OR VOMITING; Start 01/30 at 18:00 Aspirin (Aspirin) 81 mg DAILY PO Last administered on 01/31/17 08:20; Admin Dose 81 MG; Start 01/31/17 at 09:00 Nitroglycerin (Nitroglycerin (Sl Tab) 0.4 Mg) 1 tab Q5M PRN SL CHEST PAIN; Start 01/30/17 at 18:00 Acetaminophen (Tylenol Tab) 650 mg Q6H PRN PO PAIN LEVEL 1-3 OR FEVER; Start at 18:00 Morphine Sulfate (morphine) 1 mg Q4H PRN IV PAIN LEVEL 7-10; Start 01/30/17 at 18:00 Docusate Sodium (Colace) 100 mg Q12H PRN PO CONSTIPATION; Start 01/30/17 at 18: 00 Pantoprazole (Protonix Tab) 40 mg DAILY@06 PO ; Start 01/31/17 at 06:00 Atorvastatin Calcium (Lipitor) 80 mg HS PO ; Start 01/31/17 at 21:00 VIET RIOS MD Jan 31, 2017 13:20
[2017-01-31] MEDS ORDERED: FENTAnyl 50 MCG/ML VIAL ONE (14:33)
[2017-01-31] MEDS ORDERED: NITROGLYCERIN (IC) 100 MCG/ML INJ ONE (14:33)
[2017-01-31] MEDS ORDERED: VERAPAMIL 5 MG INJ ONE (14:33)
[2017-01-31] MEDS ORDERED: MIDAZOLAM 1 MG/ML 2 ML INJ ONE (14:33)
[2017-01-31] MEDS ORDERED: LIDOCAINE 1% (MDV) 20 ML INJ ONE (14:33)
[2017-01-31] MEDS ORDERED: HEPARIN 1000 UNITS/ML 10 ML INJ ONE (14:33)
--- NOTE | 2017-01-31 14:46 | RADRPT ---
Vent Rate: 62 bpm RR Interval: 0 msec CA Interval: 136 msec QRS Duration: 82 msec QT Interval: 444 msec QTC Interval: 450 msec P-R-T [place]: 42 - 24 - -26 degrees Normal sinus rhythm with sinus arrhythmia Cannot rule out Anterior infarct , age undetermined ST amp; T wave abnormality, consider inferior ischemia Abnormal ECG Electronically Signed By: Tyrone Ram [id number]
[2017-01-31] MEDS ORDERED: TICAGRELOR 90 MG TABLET ONE (15:09)
[2017-01-31] MEDS ORDERED: IODIXANOL LOCM 50 ML BTL ONE (15:25)
[2017-01-31] MEDS ORDERED: SOD CHLORIDE 0.9% 1,000 ML IV SCH (15:47)
[2017-01-31] MEDS ORDERED: BIVALIRUDIN 250MG /NS 50 ML 50 ML IVPB ONE (15:54)
[2017-01-31] MEDS ORDERED: morphine 2 MG INJ IV PRN ×2 (16:00→18:00)
--- NOTE | 2017-01-31 16:01 | OPR ---
Date/Time of Note Date/Time of Note DATE: 01/31/17 TIME: 15:49 Operative Report Free Text/Dictation Procedure Date:01/31/2017 Procedures Performed: 1)Selective left and right coronary angiography. 2)Balloon angioplasty and stenting of the mid RCA with a Promus 3.0 x 16 drug- eluting stent. Pre-operative Diagnosis:NSTEMI Post-operative Diagnosis:NSTEMI Indications:51 yo F with a h/o HTN who presented with chest pain and was found to have an NSTEMI (trop 2.6). Description of Procedure: After informed consent, the patient was brought to the cardiac catheterization lab. The procedure site was prepped and draped in usual manner. The patient was premedicated with versed 1mg and fentanyl 50 mcg. 2mL lidocaine was injected into the right wrist. Next using the posterior wall approach technique , the 5/6 malawian sheath was inserted into the right radial artery. Next using the JL3.0 and JR4, selective angiography of the left and right coronary arteries were obtained. The decision was made to proceed with PCI of the RCA. A 6 malawian JR4 guide was advanced and engaged into the right coronary artery. After appropriate anticoagulation and antiplatelets were given, the PT 2 moderate angioplasty wire was advanced past the lesion. Next the 2.0 X 12 balloon was used to dilate the lesion times 1 at a maximum of 10 sonja. Subsequently, the Promus 3.0 x 16 stent was advanced to the lesion and deployed at 11 sonja. Next the stent was post dilated with the 3.25 X 8 noncompliant balloon times 2 at a maximum of 14 sonja. Final angiography revealed REZA 3 flow, no edge dissection, and appropriate stent expansion. Next all equipment was removed and hemostasis was achieved by TR band Findings: Anatomy/Hemodynamics: Left main: no significant disease LAD:no significant disease Diagonal:no significant disease Circumflex:no significant disease Obtuse marginal:no significant disease RCA:mid 99% PDA:no significant disease PLV:no significant disease LV angiography:not done LV-Ao:no gradient Contrast used:85mL Fluoroscopy time:11.4 Medications used: Versed 1 Fentanyl 50 radial cocktail (heparin 2000, NTG 200, verapamil 2.5) angiomax bolus plus drip Ticagrelor 180mg Equipment used: 6 malawian JR4 guide PT 2 moderate support angioplasty wire 2 x 12 balloon Promus 3.0 x 16 drug eluting stent 3.25 x 8 noncompliant balloon Assessment: NSTEMI s/p PCI of mid RCA with Promus 3.0 x 16 drug eluting stent HTN Plan: -monitor overnight in tele -ASA 81mg indefinitely -ticagrelor 90mg BID 1 year -tobacco cessation -statin, PATRICIA SCANLON Jan 31, 2017 16:00
[2017-01-31] MEDS: TICAGRELOR 90 MG TABLET PO SCH (20:49)
[2017-01-31] MEDS ORDERED: ATORVASTATIN 80 MG TAB PO SCH (21:00)
[2017-02-01] VITALS (8 sets, daily range): BP systolic 120–154; BP diastolic 60–84; PULSE 58–84; RESP 16–20
[2017-02-01] MEDS: PANTOPRAZOLE (EC) 40 MG TAB PO SCH (06:18)
[2017-02-01] MEDS: ASPIRIN 81 MG TAB PO SCH (08:56)
[2017-02-01] MEDS: METOPROLOL 25 MG TAB PO SCH (08:57)
[2017-02-01] MEDS: LOSARTAN 25 MG TAB PO SCH (08:58)
--- NOTE | 2017-02-01 08:58 | CONS ---
Date/Time of Note Date/Time of Note DATE: 02/01/17 TIME: 08:57 Assessment/Plan Assessment/Plan Chief Complaint/Hosp Course NSTEMI: Trop peaked at 2.6. Ef preserved. Cath with 99% mid RCA s/p successful PCI. No further chest pain. HTN Prior tobacco use Obesity -ASA, ticagrelor -lipitor -metoprolol 25mg BID -cozaar -ok for d/c with all current cardiac meds as ordered Problems: Consultation Date/Type/Reason Admit Date/Time Jan 30, 2017 at 16:08 Initial Consult Date 01/30/17 Type of Consultation: Cardiology Referring Provider: PRACHI SPIVEY MD 24 HR Interval Summary Free Text/Dictation No o/n events. No chest pain. Exam/Review of Systems Vital Signs Vitals Vital Signs Date Time Temp Pulse Resp B/P Pulse Ox O2 Delivery O2 Flow Rate FiO2 02/01/17 08:50 74 02/01/17 03:58 97.7 16 120/67 94 Room Air Intake and Output 01/31/17 01/31/17 02/01/17 15:00 23:00 07:00 Intake Total 100 ml 250 ml Balance 100 ml 250 ml Exam Constitutional: alert, oriented Psych: no complaints Head: atraumatic, normocephalic Neck: No jvd Respiratory: clear to auscultation, No crackles/rales Cardiovascular: regular rate and rhythm, No edema Gastrointestinal: non-tender, soft Musculoskeletal: nl extremities to inspection Extremities: normal pulses Neurological: nl mental status, nl speech Results Result Diagram: 01/31/17 0532 01/31/17 0532 Results 24 hrs Laboratory Tests Test 01/31/17 19:15 Activated Partial Thromboplast Time 48.7 H Medications Medications Current Medications Metoprolol Tartrate (Lopressor) 25 mg BID PO Last administered on 01/31/17 20: 45; Admin Dose 25 MG; Start 01/30/17 at 17:30 Losartan Potassium (Cozaar) 25 mg DAILY PO Last administered on 01/31/17 08:20 ; Admin Dose 25 MG; Start 01/31/17 at 09:00 Lorazepam (Ativan) 0.5 mg Q8H PRN PO ANXIETY; Start 01/30/17 at 18:00 Ondansetron HCl (Zofran Tab) 4 mg Q6H PRN PO NAUSEA AND/OR VOMITING; Start 01/30 at 18:00 Aspirin (Aspirin) 81 mg DAILY PO Last administered on 01/31/17 08:20; Admin Dose 81 MG; Start 01/31/17 at 09:00 Nitroglycerin (Nitroglycerin (Sl Tab) 0.4 Mg) 1 tab Q5M PRN SL CHEST PAIN; Start 01/30/17 at 18:00 Acetaminophen (Tylenol Tab) 650 mg Q6H PRN PO PAIN LEVEL 1-3 OR FEVER Last administered on 01/31/17 20:50; Admin Dose 650 MG; Start 01/30/17 at 18:00 Docusate Sodium (Colace) 100 mg Q12H PRN PO CONSTIPATION; Start 01/30/17 at 18: 00 Pantoprazole (Protonix Tab) 40 mg DAILY@06 PO Last administered on 02/01/17 06 :18; Admin Dose 40 MG; Start 01/31/17 at 06:00 Atorvastatin Calcium (Lipitor) 80 mg HS PO Last administered on 01/31/17 20:44 ; Admin Dose 80 MG; Start 01/31/17 at 21:00 Ticagrelor (Brilinta) 90 mg BID PO Last administered on 01/31/17 20:49; Admin Dose 90 MG; Start 01/31/17 at 21:00 Miscellaneous Information (* Miscellaneous Pharmacy Order) HOLD all METFORMIN ... ONCE XX Last administered on 01/31/17 16:00; Admin Dose 1 EA; Start at 16:00; Stop 02/02/17 at 15:59 Morphine Sulfate (morphine) 2 mg Q2H PRN IV FOR NON CARDIAC PAIN (4-10); Start 01/31/17 at 16:00 Morphine Sulfate (morphine) 2 mg Q4H PRN IV pain Last administered on 19:34; Admin Dose 2 MG; Start 01/31/17 at 18:00 PATRICIA NEVILLE Feb 01, 2017 08:58
[2017-02-01] MEDS: TICAGRELOR 90 MG TABLET PO SCH (09:00)
--- NOTE | 2017-02-01 11:44 | PDOCDIS ---
Discharge Instructions CONDITION Patient Condition: Good HOME CARE INSTRUCTIONS: Special Diet: Cardiac ACTIVITY: Activity Restrictions: No Restrictions FOLLOW UP/APPOINTMENTS Appointments Follow up with cardiology as out-pt Follow up with PCP as out-pt VIET RIOS MD Feb 01, 2017 11:44
[2017-02-01] MEDS ORDERED: ATOR80TA75 PO (11:51)
[2017-02-01] MEDS ORDERED: NICO1PAT19 TD (11:51)
[2017-02-01] MEDS ORDERED: TICA90TA PO (11:51)
[2017-02-01] MEDS ORDERED: LOSA25TA5 PO (11:51)
[2017-02-01] MEDS ORDERED: METO-448 PO (11:51)
[2017-02-01] MEDS ORDERED: ASPI81TA3 PO (11:51)
[2017-02-01] MEDS ORDERED: NIT4 SL (11:51)
--- NOTE | 2017-02-01 14:57 | DS ---
DATE OF ADMISSION: 01/30/2017 DATE OF DISCHARGE: 02/01/2017 CONSULTANTS: [employer] Master Analyst. PROCEDURES: 1. Echocardiogram which demonstrated normal left ventricle systolic function, normal left ventricle cavity size, normal left ventricle wall thickness, ejection fraction estimated at 60%. No diastoli c dysfunction, no significant valvular stenosis or regurgitation seen. 2. Selective left and right coronary angiography with balloon angioplasty and stenting of the mid R CA, with Promus 3.0 x 16 drug-eluting stent. DISCHARGE DIAGNOSES: 1. Non-ST elevation myocardial infarction, status post selective left and right coronary angiograph y, balloon angioplasty and stent of the mid RCA with Promus 3.0 x 16 drug-eluting stent. Patient molina s been placed on aspirin, Brilinta, a statin and beta giselle. 2. Essential hypertension. Well controlled on beta giselle and Losartan. 3. Dyslipidemia. The patient has been started on a statin. MEDICATIONS: 1. Losartan 25 mg, 1 tab p.o. daily. 2. Aspirin 81 mg daily. 3. Lipitor 80 mg q. p.m. 4. Metoprolol 25 mg p.o. b.i.d. 5. Nitroglycerin sublingual. 6. Brilinta 90 mg p.o. b.i.d. 7. Nicotine patch. ALLERGIES: NO KNOWN DRUG ALLERGIES. LABORATORY: WBC 12.9, hemoglobin 12.9, hematocrit 40.5, platelets 254. Sodium 144, potassium 4.0, chloride 106, bicarbonate 26, BUN 11, , glucose 100, calcium 8.9, magnesium 2.1. Triglycerides 175, total cholesterol 171, LDL 86, HDL 50. DISPOSITION: Home. DIET: Cardiac diet. ACTIVITY: As tolerated. Smoking cessation was advised. HOSPITAL COURSE: This is a pleasant 51-year-old female with a past medical history of hypertension, nicotine dependency and obesity, who presented to [facility] secondary to having chest discomfort which has been going on x3 days. The chest pain was substernal, radiating to the l eft shoulder. Also she has been complaining of having a headache without any dizziness or any other discomfort. The chest pain was not accompanied with any shortness of breath. No recent travel his tory. No sick contacts. On evaluation in the course of the emergency room the patient's EKG showed normal sinus rhythm and rate, ventricular rate of 85, diffuse minimal ST depression, with minimal ST elevation with RVR. The patient's troponin was found to be elevated and she was placed on aspirin a nd a heparin drip and was admitted to the telemetry floor. Cardiology was consulted. A 2D echocard iogram was obtained. The patient was then taken to the cardiac candlemaking laborer for selective right and lef t angiography, and was found to have mid RCA disease. Therefore she had balloon angioplasty and daria nt in the mid RCA with a Promus 3.0 x 16 drug-eluting stent. The patient tolerated the procedure we ll. The patient was taken to the recovery room in stable condition and was started on a statin, Katie linta, continued on aspirin, and was placed on beta blockers. This morning the patient is without a ny chest pain or shortness of breath. Her vitals are stable, with a temperature of 98.0, pulse 74, respirations 17, blood pressure 125/60, oxygen 98% on room air. I had a long discussion with the pa tiekaylynn regarding her BMI and her nicotine dependency, and have suggested and instructed for the patie nt to exercise at least 30 minutes a day and smoking cessation. CONDITION AT TIME OF DISCHARGE: Stable. Dictated By: VIET MAHONEY/ADIN Conf#: [id number] DID#: [id number]
== END 2017-02-01 13:30 | disposition home or self-care (01) | DRG 247 ==
LOC: E/R 12:22 → TEL 16:08
PROVIDERS: ADMIT Family Medicine; ATTEND Family Medicine
PROC: 027034Z Dilation of Coronary Artery, One Artery with Drug-eluting Intraluminal Device, Percutaneous Approach (ICD-10-PCS; principal; 2017-01-31)
PROC: 4A023N7 Measurement of Cardiac Sampling and Pressure, Left Heart, Percutaneous Approach (ICD-10-PCS; 2017-01-31)
PROC: B211YZZ Fluoroscopy of Multiple Coronary Arteries using Other Contrast (ICD-10-PCS; 2017-01-31)
DX: I21.4 Non-ST elevation (NSTEMI) myocardial infarction (principal); I10 Essential (primary) hypertension; E78.5 Hyperlipidemia, unspecified; I25.10 Atherosclerotic heart disease of native coronary artery without angina pectoris; F17.210 Nicotine dependence, cigarettes, uncomplicated; E66.9 Obesity, unspecified; Z68.34 Body mass index [BMI] 34.0-34.9, adult
CPT/HCPCS: 36415; 71275; 76705; 80048; 80053; 80061; 81001; 81003; 82550; 82553; 83690; 83735; 84443; 84484; 85025; 85610; 85730; 93005; 93306; 93458; 96374; 96375; C1725; C1769; C1874; C1887; C9600; J0583; J1170; J1644; J2250; J2270; J2405; J3010; J7030; Q9967

== ENCOUNTER 2017-08-17 23:24 | Emergency (ER) | payer BC ==
[~2017-08-17] VITALS: Ht 167.6 cm; Wt 90.5 kg
[~2017-08-17 23:24] MED LIST: ASPI81TA3 PO; ATOR80TA75 PO; LOSA25TA5 PO; METO-448 PO; NICO1PAT43 TD; NIT4 SL; TICA90TA PO
[2017-08-17 23:32] VITALS: Ht 167.6 cm; Wt 90.5 kg
[2017-08-18] MEDS ORDERED: ONDANSETRON 4 MG INJ IV STA (00:02)
[2017-08-18] MEDS ORDERED: morphine 4 MG/ML VIAL IV STA (00:02)
[2017-08-18] MEDS ORDERED: SOD CHLORIDE 0.9% 500 ML IV STA (00:02)
[2017-08-18 00:47] LABS: BASOPHIL # 0.1 10^3/ul (0.0-0.1); BASOPHILS % 0.4 % (0.0-2.0); EOSINOPHILS # 0.4 10^3/ul (0.0-0.5); EOSINOPHILS % 3.3 % (0.0-7.0); HEMATOCRIT 40.5 % (37.0-47.0); HEMOGLOBIN 13.6 g/dl (12.0-16.0); LYMPHOCYTES # 4.4 10^3/ul (0.8-2.9); LYMPHOCYTES % 32.3 % (15.0-51.0); MEAN CORPUSCULAR HEMOGLOBIN 28.4 pg (29.0-33.0); MEAN CORPUSCULAR HGB CONC 33.6 g/dl (32.0-37.0); MEAN CORPUSCULAR VOLUME 84.6 fl (82.0-101.0); MEAN PLATELET VOLUME 11.5 fl (7.4-10.4); MONOCYTE # 0.9 10^3/ul (0.3-0.9); MONOCYTES % 6.9 % (0.0-11.0); NEUTROPHIL # 7.7 10^3/ul (1.6-7.5); NEUTROPHILS % 56.8 % (39.0-77.0); PLATELET COUNT 252 10^3/UL (140-415); RED BLOOD COUNT 4.79 10^6/ul (4.20-5.40); RED CELL DISTRIBUTION WIDTH 13.4 % (11.5-14.5); WHITE BLOOD COUNT 13.5 10^3/ul (4.8-10.8)
[2017-08-18 00:55] LABS: ADD UMIC YES; UR ASCORBIC ACID NEGATIVE (NEGATIVE); UR BACTERIA FEW /HPF (NONE SEEN); UR BILIRUBIN (Dip) NEGATIVE (NEGATIVE); UR BLOOD (Dip) 1+ mg/dL (NEGATIVE); UR CLARITY SLIGHTLY CLOUDY (CLEAR); UR COLOR YELLOW (YELLOW); UR GLUCOSE (Dip) NEGATIVE (NEGATIVE); UR KETONES (Dip) NEGATIVE (NEGATIVE); UR LEUKOCYTE ESTERASE (Dip) NEGATIVE Leu/ul (NEGATIVE); UR MUCUS MODERATE /HPF (NONE SEEN); UR NITRITE (Dip) NEGATIVE (NEGATIVE); UR RBC 7 /HPF (0-5); UR SPECIFIC GRAVITY (Dip) 1.021 (1.003-1.030); UR SQUAMOUS EPITHELIAL CELL FEW /HPF (FEW); UR TOTAL PROTEIN (Dip) NEGATIVE (NEGATIVE); UR UROBILINOGEN (Dip) 2+ mg/dL (NEGATIVE)
[2017-08-18 01:05] LABS: ALANINE AMINOTRANSFERASE 49 IU/L (13-69); ALBUMIN 4.2 g/dl (3.3-4.9); ALKALINE PHOSPHATASE 101 IU/L (42-121); ANION GAP 13 (8-16); ASPARTATE AMINO TRANSFERASE 20 IU/L (15-46); BILIRUBIN,INDIRECT 0.1 mg/dl (0-1.1); BILIRUBIN,TOTAL 0.1 mg/dl (0.2-1.3); BLOOD UREA NITROGEN 17 mg/dl (7-20); CALCIUM 9.8 mg/dl (8.4-10.2); CARBON DIOXIDE 26 mmol/L (21-31); CHLORIDE 107 mmol/L (97-110); CREATININE 0.95 mg/dl (0.44-1.00); GLUCOSE 112 mg/dl (70-220); POTASSIUM 4.3 mmol/L (3.5-5.1); SODIUM 142 mmol/L (135-144); TOTAL PROTEIN 7.7 g/dl (6.1-8.1)
--- NOTE | 2017-08-18 01:32 | RADRPT ---
PROCEDURE: CHEST - 1 VIEW CLINICAL INDICATION: 51-year-old female with abdominal pain. TECHNIQUE: A single frontal AP semi-erect portable view of the chest was performed. The images we re reviewed on a PACS workstation. COMPARISON: CTA chest January 30, 2017. FINDINGS: The cardiomediastinal silhouette is within normal limits. There is a shallow inspiration. There is b ilateral lower lung zone subsegmental atelectasis. There is no evidence for an infiltrate. There i s no evidence for congestive heart failure. There is no evidence for pneumothorax. The osseous struc tures are intact. IMPRESSION: Shallow inspiration with bilateral lower lung zone subsegmental atelectasis. .Jem Joya MD, MD Date Time Electronically viewed and signed by .Jem Joya MD, on 08/18/2017 01:32 .M/
[2017-08-18 01:33] LABS: TROPONIN-I < 0.012 ng/ml (0.00-0.12)
[2017-08-18] MEDS ORDERED: LORAZEPAM 2 MG INJ IV ONE (02:30)
[2017-08-18] MEDS ORDERED: TRAM50TA2 PO (02:36)
--- NOTE | 2017-08-18 02:37 | ERD ---
ER Documentation Chief Complaint Date/Time DATE: 08/18/17 TIME: 02:37 Chief Complaint chest pain/vomiting x 1 day HPI This is a 51-year-old female comes in with chest pain and vomiting for 1 day. Chest pain is mild to moderate intensity epigastric in location with no exacerbating or alleviating factors. Pain is mild to moderate intensity is been going on for 24 hours with no radiations. Mild nausea but no actual vomiting per patient. No fevers no chills. No change in bowel or bladder habits. No other current issues. ROS All systems reviewed and are negative except as per history of present illness. Medications Home Meds Active Scripts Tramadol HCl (Tramadol HCl) 50 Mg Tablet, 50 MG PO Q4 Y for PAIN, #20 TAB Prov:ANTONIO ROBLES 08/18/17 Nicotine* (Nicotine* Patch) 7 mg/day Patch, 1 PATCH TD DAILY, #30 PATCH Prov:VIET RIOS MD 02/01/17 Ticagrelor* (Brilinta*) 90 Mg Tablet, 90 MG PO BID, #60 TAB Prov:VIET RIOS MD 02/01/17 Nitroglycerin* (Nitrostat*) 0.4 Mg Tab.subl, 1 TAB SL Q5M Y for CHEST PAIN, #30 Prov:VIET RIOS MD 02/01/17 Metoprolol Tartrate* (Lopressor*) 25 Mg Tab, 25 MG PO BID, #60 TAB Prov:VIET RIOS MD 02/01/17 Atorvastatin* (Atorvastatin*) 80 Mg Tablet, 80 MG PO HS, #30 TAB Prov:VIET RIOS MD 02/01/17 Aspirin (Aspirin) 81 Mg Chew, 81 MG PO DAILY, #30 TAB Prov:VIET RIOS MD 02/01/17 Losartan Potassium* (Losartan Potassium*) 25 Mg Tablet, 25 MG PO DAILY, #30 TAB Prov:VIET RIOS MD 02/01/17 Allergies Allergies: Coded Allergies: No Known Allergy (Unverified , 08/17/17) PMhx/Soc 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 Neck: Full range of motion..~ No meningismus. Resp: Clear to auscultation bilaterally Cardio: Regular rate and rhythm, no murmurs Abd: Soft, non tender, non distended. Normal bowel sounds Skin: No petechiae or rashes Back: No midline or flank tenderness Ext: No cyanosis, or edema Neur: Awake and alert Psych: Normal Mood and Affect Result Diagram: 08/18/17 0015 08/18/17 0015 Results 24 hrs Laboratory Tests Test 08/18/17 00:15 White Blood Count 13.510^3/ul Red Blood Count 4.7910^6/ul Hemoglobin 13.6g/dl Hematocrit 40.5% Mean Corpuscular Volume 84.6fl Mean Corpuscular Hemoglobin 28.4pg Mean Corpuscular Hemoglobin Concent 33.6g/dl Red Cell Distribution Width 13.4% Platelet Count 79633^3/UL Mean Platelet Volume 11.5fl Neutrophils % 56.8% Lymphocytes % 32.3% Monocytes % 6.9% Eosinophils % 3.3% Basophils % 0.4% Nucleated Red Blood Cells % 0.0/100WBC Neutrophils # 7.710^3/ul Lymphocytes # 4.410^3/ul Monocytes # 0.910^3/ul Eosinophils # 0.410^3/ul Basophils # 0.110^3/ul Nucleated Red Blood Cells # 0.010^3/ul Urine Color YELLOW Urine Clarity SLIGHTLY CLOUDY Urine pH 6.0 Urine Specific [place] 1.021 Urine Ketones NEGATIVEmg/dL Urine Nitrite NEGATIVEmg/dL Urine Bilirubin NEGATIVEmg/dL Urine Urobilinogen 2+mg/dL Urine Leukocyte Esterase NEGATIVELeu/ul Urine Microscopic RBC 7/HPF Urine Microscopic WBC 1/HPF Urine Squamous Epithelial Cells FEW/HPF Urine Bacteria FEW/HPF Urine Mucus MODERATE/HPF Urine Hemoglobin 1+mg/dL Urine Glucose NEGATIVEmg/dL Urine Total Protein NEGATIVEmg/dl Sodium Level 142mmol/L Potassium Level 4.3mmol/L Chloride Level 107mmol/L Carbon Dioxide Level 26mmol/L Anion Gap 13 Blood Urea Nitrogen 17mg/dl Creatinine 0.95mg/dl Glucose Level 112mg/dl Calcium Level 9.8mg/dl Total Bilirubin 0.1mg/dl Direct Bilirubin 0.00mg/dl Indirect Bilirubin 0.1mg/dl Aspartate Amino Transf (AST/SGOT) 20IU/L Alanine Aminotransferase (ALT/SGPT) 49IU/L Alkaline Phosphatase 101IU/L Troponin I < 0.012ng/ml Total Protein 7.7g/dl Albumin 4.2g/dl Globulin 3.50g/dl Albumin/Globulin Ratio 1.20 Lipase 71U/L Current Medications Medications (Trade) Dose Ordered Sig/Zoey Route PRN Reason Start Time Stop Time Status Last Admin Dose Admin Sodium Chloride (NS) 500 ml @ 500 mls/hr Q1H STAT IV 08/18/17 00:02 08/18/17 01:01 DC 08/18/17 00:33 Morphine Sulfate (morphine) 4 mg ONCE STAT IV 08/18/17 00:02 08/18/17 00:06 DC 08/18/17 00:33 Ondansetron HCl (Zofran Inj) 4 mg ONCE STAT IV 08/18/17 00:02 08/18/17 00:06 DC 08/18/17 00:33 Lorazepam (Ativan) 1 mg ONCE ONCE IV 08/18/17 02:30 08/18/17 02:31 DC Procedures/MDM EKG: Rate/Rhythm: [Normal Sinus Rhythm] QRS, ST, T-waves: [No changes consistent w/ acute ischemia] Impression: [No evidence of ischemia or arrhythmia] Chest X-ray 1V Interpreted by me: Soft Tissue: No acute abnormalities Bones: No acute abnormalities Mediastinum/Cardiac Silhouette/Lungs: [No acute abnormalities] Patient's thoracic symptoms have stabilized while in the department and are stable for outpatient follow up. Exam and work up not consistent w/ ischemia, arrhythmia, PE or dissection. Departure Diagnosis: Primary Impression: Chest pain Chest pain type: unspecified Qualified Code: R07.9 - Chest pain, unspecified type Condition: Stable Patient Instructions: Chest Pain, Uncertain Cause ANTONIO ROBLES Aug 18, 2017 02:37
[2017-08-18 03:08] VITALS: BP 106/71; PULSE 72; RESP 17
== END 2017-08-18 03:05 | disposition home or self-care (01) ==
LOC: E/R 23:24
DX: R07.9 Chest pain, unspecified (principal); I10 Essential (primary) hypertension; R10.13 Epigastric pain; Z79.82 Long term (current) use of aspirin
CPT/HCPCS: 36415; 71010; 80053; 81001; 83690; 84484; 85025; 93005; 96374; 96375; 99285; J2060; J2270; J2405; J7040